=== PATIENT | female | born 1965 | race Two or more races ===

== ENCOUNTER 2025-05-26 12:15 | Inpatient (IN) | payer OTHER ==
[~2025-05-26] VITALS: Ht 165.1 cm; Wt 74.4 kg
[2025-05-26 17:30] VITALS: BP 128/54; PULSE 62; RESP 18; TEMP 98.8; O2SAT 99
[2025-05-26 19:49] VITALS: BP 127/64; PULSE 89; RESP 18; TEMP 97.8; O2SAT 97
[2025-05-26] MEDS: OxyCODONE HCL 5 MG IR TABLET PO PRN (19:49)
[2025-05-26] MEDS: PANTOPRAZOLE SODIUM 40 MG DR TABLET PO SCH (19:49)
[2025-05-27 06:13] VITALS: O2SAT 97
[2025-05-27] MEDS: LEVOTHYROXINE SODIUM 75 MCG TABLET PO SCH (06:16)
[2025-05-27] MEDS: ACETAMINOPHEN 500 MG TABLET PO PRN (06:19)
[2025-05-27 07:33] LABS: PLATELET COUNT (AUTO) 423 K/uL (150-450); RED BLOOD CELL COUNT(AUTO) 2.37 MIL/uL (4.00-5.20); RED CELL DISTRIBUTION WIDTH 13.7 % (11.5-14.5); WHITE BLOOD COUNT (AUTO) 10.6 K/uL (4.5-11.0)
[2025-05-27 07:54] LABS: ASPARTATE AMINOTRANSFERASE 67 U/L (15-37); CALCIUM, TOTAL 8.5 mg/dL (8.8-10.5); CREATININE 0.86 mg/dL (0.60-1.30); GLOMERULAR FILTR. RATE CALC > 60 mL/min (>60); GLUCOSE,RANDOM 99 mg/dL (70-110); SODIUM SERUM 140 mmol/L (136-145); TOTAL PROTEIN, SERUM 6.1 g/dL (6.4-8.2); UREA NITROGEN, BLOOD 37 mg/dL (7-18)
[2025-05-27 08:15] VITALS: BP 121/51; PULSE 82; RESP 18; TEMP 98.1; O2SAT 98
[2025-05-27] MEDS: ETHYL ALCOHOL 62% ANTISEPTIC NASAL SANITIZER 0.6 ML AMPUL NASAL SCH (08:56)
[2025-05-27] MEDS: INFLUENZA VIRUS VACCINE TVS (6MO+) 2025-26/PF 45 MCG/0.5 ML SYRINGE IM. ONE (12:19)
[2025-05-27] MEDS: FAMOTIDINE 20 MG TABLET PO SCH (21:59)
[2025-05-27 22:00] VITALS: BP 114/52; PULSE 58; RESP 17; TEMP 98.4; O2SAT 97
[2025-05-28 08:00] VITALS: BP 123/46; PULSE 72; RESP 17; TEMP 98.6; O2SAT 99
[2025-05-28 20:37] VITALS: BP 112/53; PULSE 65; RESP 18; TEMP 98.1; O2SAT 99
[2025-05-29 08:00] VITALS: BP 137/47; PULSE 70; RESP 18; TEMP 98.2; O2SAT 98
[2025-05-29 19:56] VITALS: BP 133/52; PULSE 71; RESP 18; TEMP 98.2; O2SAT 98
[2025-05-29 23:19] VITALS: O2SAT 98
[2025-05-30 08:00] VITALS: BP 130/50; PULSE 67; RESP 18; TEMP 98.6; O2SAT 99
[2025-05-30] MEDS: GABAPENTIN 100 MG CAPSULE PO SCH (11:11)
[2025-05-30 20:00] VITALS: BP 126/51; PULSE 66; RESP 18; TEMP 99.1; O2SAT 98
[2025-05-30 23:25] VITALS: TEMP 98.2
[2025-05-31 06:56] LABS: ASPARTATE AMINOTRANSFERASE 17 U/L (15-37); CALCIUM, TOTAL 8.7 mg/dL (8.8-10.5); CREATININE 0.94 mg/dL (0.60-1.30); GLOMERULAR FILTR. RATE CALC > 60 mL/min (>60); GLUCOSE,RANDOM 89 mg/dL (70-110); SODIUM SERUM 137 mmol/L (136-145); TOTAL PROTEIN, SERUM 7.0 g/dL (6.4-8.2); UREA NITROGEN, BLOOD 23 mg/dL (7-18)
[2025-05-31 06:58] LABS: PLATELET COUNT (AUTO) 587 K/uL (150-450); RED BLOOD CELL COUNT(AUTO) 3.25 MIL/uL (4.00-5.20); RED CELL DISTRIBUTION WIDTH 14.0 % (11.5-14.5); WHITE BLOOD COUNT (AUTO) 11.8 K/uL (4.5-11.0)
[2025-05-31 08:00] VITALS: BP 127/62; PULSE 64; RESP 18; TEMP 99; O2SAT 97
[2025-05-31] MEDS: GABAPENTIN 300 MG CAPSULE PO SCH (15:47)
[2025-05-31 20:00] VITALS: BP 115/47; PULSE 71; RESP 18; TEMP 98.8; O2SAT 99
[2025-05-31 20:28] VITALS: BP 119/52; PULSE 72
[2025-05-31 20:50] LABS: APPEARANCE,URINE CLEAR (CLEAR); GLUCOSE, URINE (UA) NEGATIVE (NEGATIVE); LEUKOCYTE ESTERASE ,URINE NEGATIVE (NEGATIVE); NITRATE,URINE NEGATIVE (NEGATIVE); OCCULT BLOOD,URINE NEGATIVE (NEGATIVE); SPECIFIC GRAVITIY, URINE 1.028 (1.003-1.030)
[2025-06-01 08:00] VITALS: BP 132/58; PULSE 65; RESP 19; TEMP 98.6; O2SAT 96
[2025-06-01 20:00] VITALS: BP 124/53; PULSE 81; RESP 19; TEMP 99.5; O2SAT 95
[2025-06-02 00:07] VITALS: TEMP 98.8
[2025-06-02 06:09] LABS: CALCIUM, TOTAL 8.6 mg/dL (8.8-10.5); CREATININE 1.02 mg/dL (0.60-1.30); GLOMERULAR FILTR. RATE CALC 55.0 mL/min (>60); GLUCOSE,RANDOM 94.0 mg/dL (70-110); SODIUM SERUM 136.0 mmol/L (136-145); UREA NITROGEN, BLOOD 28.0 mg/dL (7-18)
[2025-06-02 07:17] LABS: PLATELET COUNT (AUTO) 446 K/uL (150-450); RED BLOOD CELL COUNT(AUTO) 2.91 MIL/uL (4.00-5.20); RED CELL DISTRIBUTION WIDTH 14.2 % (11.5-14.5); WHITE BLOOD COUNT (AUTO) 8.7 K/uL (4.5-11.0)
[2025-06-02 08:02] VITALS: BP 147/74; PULSE 65; RESP 18; TEMP 98.6; O2SAT 100
[2025-06-02 20:00] VITALS: BP 122/49; PULSE 87; RESP 18; TEMP 99; O2SAT 99
[2025-06-02] MEDS: GABAPENTIN 300 MG CAPSULE PO SCH ×2 (20:11→20:13)
[2025-06-02 20:30] VITALS: O2SAT 99
[2025-06-02 23:00] VITALS: BP 117/46; PULSE 70; RESP 18; TEMP 99.1; O2SAT 98
[2025-06-03 06:23] VITALS: BP 116/54; PULSE 66; RESP 18; TEMP 98.4; O2SAT 97
[2025-06-03 09:00] VITALS: BP 133/53; PULSE 66; RESP 18; TEMP 98.1; O2SAT 98
[2025-06-03] MEDS ORDERED: FAMO20 PO (09:36)
[2025-06-03] MEDS ORDERED: TRAM50TA5 PO (09:36)
[2025-06-03] MEDS ORDERED: ACET-3385 PO (09:36)
[2025-06-03] MEDS ORDERED: LEVO75 PO (09:36)
[2025-06-03] MEDS ORDERED: GABA-1181 PO ×2 (09:36)
[2025-06-03] MEDS: GABAPENTIN 300 MG CAPSULE PO SCH (19:23)
[2025-06-03 20:28] VITALS: BP 108/50; PULSE 80; RESP 18; TEMP 99.3; O2SAT 96
[2025-06-04 00:20] VITALS: TEMP 97.7
[2025-06-04 07:19] LABS: CALCIUM, TOTAL 8.5 mg/dL (8.8-10.5); CREATININE 1.08 mg/dL (0.60-1.30); GLOMERULAR FILTR. RATE CALC 52.0 mL/min (>60); GLUCOSE,RANDOM 94.0 mg/dL (70-110); SODIUM SERUM 135.0 mmol/L (136-145); UREA NITROGEN, BLOOD 28.0 mg/dL (7-18)
[2025-06-04 07:22] LABS: PLATELET COUNT (AUTO) 406 K/uL (150-450); RED BLOOD CELL COUNT(AUTO) 3.16 MIL/uL (4.00-5.20); RED CELL DISTRIBUTION WIDTH 14.4 % (11.5-14.5); WHITE BLOOD COUNT (AUTO) 7.5 K/uL (4.5-11.0)
[2025-06-04 08:05] VITALS: BP 113/64; PULSE 70; RESP 19; TEMP 97.9; O2SAT 98
[2025-06-04 20:00] VITALS: BP 144/73; PULSE 87; RESP 19; TEMP 97.2; O2SAT 98
[2025-06-04 20:03] VITALS: BP 144/73; PULSE 87; RESP 19; TEMP 97.2; O2SAT 98
[2025-06-05 08:00] VITALS: BP 113/53; PULSE 65; RESP 19; TEMP 98.6; O2SAT 98
[2025-06-05] MEDS: OxyCODONE HCL 5 MG IR TABLET PO PRN (13:49)
[2025-06-05 20:00] VITALS: BP 112/54; PULSE 81; RESP 18; TEMP 98.6; O2SAT 98
[2025-06-06 08:00] VITALS: BP 119/49; PULSE 81; RESP 18; TEMP 98.8; O2SAT 97
== END 2025-06-06 12:00 | disposition home health service (06) | DRG 552 ==
LOC: 2WR 17:28
PROVIDERS: ADMIT Physical Medicine & Rehabilitation; ATTEND Physical Medicine & Rehabilitation
DX: M48.061 Spinal stenosis, lumbar region without neurogenic claudication (principal); D62 Acute posthemorrhagic anemia; N17.9 Acute kidney failure, unspecified; Z74.09 Other reduced mobility; M25.551 Pain in right hip; M25.552 Pain in left hip; R26.9 Unspecified abnormalities of gait and mobility; E03.9 Hypothyroidism, unspecified; R74.01 Elevation of levels of liver transaminase levels; K21.9 Gastro-esophageal reflux disease without esophagitis; I10 Essential (primary) hypertension; Z96.651 Presence of right artificial knee joint; E66.811 Obesity, class 1; R74.8 Abnormal levels of other serum enzymes; D72.829 Elevated white blood cell count, unspecified; M54.16 Radiculopathy, lumbar region; M54.31 Sciatica, right side; M41.85 Other forms of scoliosis, thoracolumbar region; Z98.1 Arthrodesis status; Z79.899 Other long term (current) drug therapy
CPT/HCPCS: 80048; 80053; 81003; 82271; 85025; 87081; 90686; 92523; 93970; 97110; 97112; 97116; 97163; 97167; 97530; 97535; 99366; J7509